=== PATIENT | female | born 1965 | race Caucasian/White ===

== ENCOUNTER 2018-09-23 10:06 | Outpatient (CLI) | payer OTHER ==
--- NOTE | 2018-09-23 13:43 | MRI ---
MRI CERVICAL SPINE WITHOUT CONTRAST: HISTORY: Neck pain. Headache. COMPARISON: None. FINDINGS: Appropriate T1 marrow signal intensity of the cervical vertebrae. Cervical spine vertebral body heig ht is maintained. There is no fracture. There is straightening of the normal cervical lordosis, whi ch may be due to patient position or muscle spasm. No significant STIR hyperintensity to suggest laura tebral body edema or ligamentous injury. The visualized brain parenchyma, cervicomedullary junction, cervical cord, and upper thoracic cord burroughs ve normal size and signal intensity. There is 2 mm of anterolisthesis of C3 upon C4. C2-C3: Central disk protrusion. No significant central canal stenosis. The neural foramina are pat ent. C3-C4: Central disk protrusion abuts the thecal sac. The ventral subarachnoid space is still mainta ined. Minimal flattening of the cervical cord. Mild central canal stenosis. No cord signal abnorma lity. Mild to moderate right and left foraminal narrowing due to uncovertebral and, to a lesser exte nt, facet hypertrophy. C4-C5: Generalized disk bulge with a small central protrusion without significant central canal sten osis. The neural foramina are patent bilaterally. C5-C6: Broad-based disk osteophyte complex causes mass effect upon the thecal sac. There is deformi ty of the cervical cord. Moderate central canal stenosis. Moderate to severe bilateral neural chito inal narrowing. C6-C7: Broad-based disk osteophyte complex causes mass effect upon the midline of the thecal sac. M ild flattening of the central cord. Mild central canal stenosis. No cord hyperintensity. Mild righ t foraminal narrowing. The left neural foramina is patent. C7-T1: No significant central canal stenosis. The neural foramina are patent. There does appear to be 1.4 mm of anterolisthesis of C7 upon T1. IMPRESSION: Degenerative changes of the cervical spine, as above. POS: [facility]
== END 2018-09-23 10:07 | disposition home or self-care (01) ==
LOC: TBSIIMAG 10:06
PROVIDERS: ATTEND Family Medicine
DX: M47.22 Other spondylosis with radiculopathy, cervical region (principal)
CPT/HCPCS: 72141

== ENCOUNTER 2018-10-29 09:13 | Outpatient (CLI) | payer OTHER ==
--- NOTE | 2018-10-29 10:28 | RAD ---
3 views of the cervical spine: 10/29/2018 COMPARISON: 05/28/2018 HISTORY: Degenerative cervical spine stenosis FINDINGS: There is disc space narrowing with degenerative endplate change and anterior osteophyte for mation at multiple levels within the cervical spine, including the C3-4 through C6-7 levels, most prominent at C5-6 and C6-7. No prevertebral soft tissue swelling. The neutral lateral exam demonstrates no anterolisthesis or retrolisthesis. With flexion there is ant erolisthesis at C2-3 measuring 4 mm, C3-4 measuring 4 mm, and C4-5 measuring 4 mm. These areas of anterolisthesis are reduced on extension imaging. IMPRESSION: Multilevel cervical spine degenerative change as detailed above. Multilevel anterolisthes is noted on the flexion.
== END 2018-10-29 09:14 | disposition home or self-care (01) ==
LOC: RAD 09:13
PROVIDERS: ATTEND Nurse Practitioner Family
DX: M48.02 Spinal stenosis, cervical region (principal); M47.812 Spondylosis without myelopathy or radiculopathy, cervical region; M43.12 Spondylolisthesis, cervical region
CPT/HCPCS: 72050

== ENCOUNTER 2020-04-08 19:06 | Emergency (ER) | payer OTHER ==
[2020-04-08] MEDS ORDERED: methylPREDNISolone Sod Succ/PF 125 MG/2 ML VIAL ONE (19:30)
[2020-04-08 19:55] LABS: #Lymphocytes 1.1 thou/uL (1.20-3.40); #Monocytes 0.5 thou/uL (0.11-0.59); #Neutrophils 4.1 thou/uL (1.40-6.50); %Basophils 0.8 % (0.0-1.0); %Eosinophils 0.3 % (0.0-10.0); %Lymphocytes 19.2 % (21.0-51.0); %Monocytes 8.1 % (0.0-10.0); %Neutrophils 71.7 % (42.0-75.0); Hemoglobin 12.5 g/dL (12.0-16.0); Mean Corpuscular Hemoglobin 31.1 pg (27.0-31.0); Mean Corpuscular Volume 91.5 fL (78.0-98.0); Mean Platelet Volume 7.2 fL (7.4-10.4); Platelet Count 249 thou/uL (130-400); RBC Distribution Width 15.9 % (11.5-14.5); Red Blood Cell (RBC) Count 4.03 mill/uL (4.20-5.40); White Blood Cell (WBC) Count 5.7 thou/uL (4.8-10.8)
[2020-04-08] MEDS ORDERED: Ketorolac Tromethamine 30 MG/ML VIAL ONE (20:11)
[2020-04-08] MEDS ORDERED: Morphine 2 MG/ML VIAL ONE (20:11)
[2020-04-08 20:17] LABS: ALT (SGPT) 24 U/L (8-55); AST (SGOT) 35 U/L (5-34); Albumin 3.8 g/dL (3.5-5.0); Alkaline Phosphatase 61 U/L (40-110); Anion Gap 15 mmol/L (10-20); BUN (Urea Nitrogen) 14 mg/dL (9.8-20.1); Bilirubin, Total 0.7 mg/dL (0.2-1.2); Calc. Creatinine Clearance 0 mL/min (70-130); Calcium 8.6 mg/dL (7.8-10.44); Carbon Dioxide 31 mmol/L (22-29); Chloride 96 mmol/L (98-107); Globulin 3.6 g/dL (2.4-3.5); Glucose 97 mg/dL (70-105); Potassium 3.5 mmol/L (3.5-5.1); Protein, Total 7.4 g/dL (6.0-8.3); Sodium 138 mmol/L (136-145)
--- NOTE | 2020-04-08 20:20 | RAD ---
Chest one view HISTORY: Dyspnea. COMPARISON: 02/09/2015. FINDINGS: Cardiac silhouette is magnified by projection. Pulmonary vasculature is unremarkable. Mediastinum is midline. Ill-defined patchy areas of parenchymal opacity project over the periphery of each lung base and the right upper lobe. No evidence of pneumothorax. Postoperative changes right shoulder. IMPRESSION : Bilateral multifocal infiltrates. Correlate for COVID pneumonitis.
[2020-04-08] MEDS ORDERED: Albuterol 200 PUFF (6.7GM INHALER) ONE (20:24)
== END 2020-04-08 21:35 | disposition home or self-care (01) ==
LOC: ERS 19:06
DX: U07.1 COVID-19 (principal); J12.82 Pneumonia due to coronavirus disease 2019; Z87.891 Personal history of nicotine dependence
CPT/HCPCS: 36415; 71045; 80053; 83880; 84484; 85025; 87040; 87804; 93005; 96374; 96375; J1885; J2270; J2930

== ENCOUNTER 2021-11-28 16:52 | Inpatient (IN) | payer BC ==
[~2021-11-28 16:52] MED LIST: Iopamidol-370 76% 500 ML 1 ML ONE
[2021-11-28 17:24] LABS: #Eosinphils 0.1 thou/uL (0.0-0.7); #Lymphocytes 2.1 thou/uL (1.20-3.40); #Monocytes 0.7 thou/uL (0.11-0.59); #Neutrophils 6.5 thou/uL (1.40-6.50); %Basophils 0.4 % (0.0-1.0); %Eosinophils 1.2 % (0.0-10.0); %Lymphocytes 22.5 % (21.0-51.0); %Monocytes 6.9 % (0.0-10.0); %Neutrophils 69.1 % (42.0-75.0); Hemoglobin 11.7 g/dL (12.0-16.0); Mean Corpuscular HGB CONC 34.7 g/dL (32.0-36.0); Mean Corpuscular Hemoglobin 34.1 pg (27.0-31.0); Mean Corpuscular Volume 98.2 fL (78.0-98.0); Mean Platelet Volume 6.4 fL (7.4-10.4); Platelet Count 331 thou/uL (130-400); RBC Distribution Width 16.8 % (11.5-14.5); Red Blood Cell (RBC) Count 3.44 mill/uL (4.20-5.40); White Blood Cell (WBC) Count 9.5 thou/uL (4.8-10.8)
[2021-11-28 17:32] LABS: PTT 28.6 sec (22.9-36.1); Prothrombin Time 13.3 sec (12.0-14.7)
[2021-11-28 17:40] LABS: ALT (SGPT) 21 U/L (8-55); AST (SGOT) 18 U/L (5-34); Albumin 3.7 g/dL (3.5-5.0); Alkaline Phosphatase 65 U/L (40-110); Anion Gap 15 mmol/L (10-20); BUN (Urea Nitrogen) 13 mg/dL (9.8-20.1); Bilirubin, Total 0.6 mg/dL (0.2-1.2); CK (CPK) 74 U/L (29-168); Calc. Creatinine Clearance 0 mL/min (70-130); Calcium 8.5 mg/dL (7.8-10.44); Carbon Dioxide 31 mmol/L (22-29); Chloride 98 mmol/L (98-107); Estimated GFR 93; Globulin 2.6 g/dL (2.4-3.5); Glucose 97 mg/dL (70-105); Lipase 24 U/L (8-78); Protein, Total 6.3 g/dL (6.0-8.3); Sodium 141 mmol/L (136-145)
[2021-11-28 18:17] LABS: SARS-CoV-2 NAA Rapid Test Not Detected (NotDetected)
[2021-11-28] MEDS ORDERED: Guaifenesin DM 100-10/5 ML UDCUP PO PRN (18:29)
[2021-11-28] MEDS ORDERED: Cyclobenzaprine 10 MG TAB PO PRN (18:29)
[2021-11-28] MEDS ORDERED: hydrALAZINE 20 MG/ML VIAL SLOW IVP PRN (18:29)
[2021-11-28] MEDS ORDERED: Senokot S 8.6-50 MG TAB PO PRN (18:29)
[2021-11-28] MEDS ORDERED: Ondansetron PF 4 MG/2 ML Vial IVP PRN (18:29)
[2021-11-28] MEDS ORDERED: niCARdipine 25 MG in Sodium Chloride 0.9% 250 ML 250 ML IVPB PRN (18:29)
[2021-11-28] MEDS ORDERED: Labetalol HCl 100 MG/20 ML VIAL SLOW IVP PRN (18:29)
[2021-11-28] MEDS ORDERED: ALPRAZolam 0.5 MG TAB PO PRN (18:29)
[2021-11-28] MEDS ORDERED: Acetaminophen 325 MG TAB PO PRN (18:29)
[2021-11-28] MEDS ORDERED: Sodium Chloride 0.9% 1,000 ML IV SCH (18:30)
[2021-11-28] MEDS ORDERED: Acetaminophen 500 MG TAB ONE (18:55)
[2021-11-28 19:57] VITALS: BMI 49.6
[2021-11-28] MEDS: Atorvastatin Calcium 40 MG TAB PO SCH (20:25)
[2021-11-29] MEDS: HYDROcodone/Acetaminophen 5/325 mg Tablet PO PRN ×3 (00:12→21:29)
[2021-11-29] MEDS: Communication Order-Pharmacy FS SCH ×2 (05:57→19:32)
[2021-11-29] MEDS ORDERED: Electrolyte Replacement Protocol FS PRN (08:30)
[2021-11-29] MEDS ORDERED: Potassium Chloride 20 MEQ TAB PO SCH (08:45)
[2021-11-29 18:48] LABS: #Basophils 0.1 thou/uL (0.0-0.2); #Eosinphils 0.1 thou/uL (0.0-0.7); #Lymphocytes 2.1 thou/uL (1.20-3.40); #Monocytes 0.8 thou/uL (0.11-0.59); %Basophils 0.5 % (0.0-1.0); %Eosinophils 1.3 % (0.0-10.0); %Lymphocytes 23.6 % (21.0-51.0); %Monocytes 8.6 % (0.0-10.0); Hemoglobin 11.9 g/dL (12.0-16.0); Mean Corpuscular HGB CONC 34.5 g/dL (32.0-36.0); Mean Corpuscular Hemoglobin 34.3 pg (27.0-31.0); Mean Corpuscular Volume 99.2 fL (78.0-98.0); Mean Platelet Volume 6.3 fL (7.4-10.4); Platelet Count 307 thou/uL (130-400); Red Blood Cell (RBC) Count 3.48 mill/uL (4.20-5.40); White Blood Cell (WBC) Count 9.1 thou/uL (4.8-10.8)
[2021-11-29 19:08] LABS: ALT (SGPT) 23 U/L (8-55); AST (SGOT) 18 U/L (5-34); Albumin 3.7 g/dL (3.5-5.0); Alkaline Phosphatase 67 U/L (40-110); Anion Gap 13 mmol/L (10-20); BUN (Urea Nitrogen) 11 mg/dL (9.8-20.1); Bilirubin, Total 0.6 mg/dL (0.2-1.2); Calc. Creatinine Clearance 178 mL/min (70-130); Calcium 8.7 mg/dL (7.8-10.44); Carbon Dioxide 31 mmol/L (22-29); Chloride 101 mmol/L (98-107); Estimated GFR 81; Globulin 2.7 g/dL (2.4-3.5); Glucose 111 mg/dL (70-105); Magnesium 1.9 mg/dL (1.6-2.6); Phosphorus 2.6 mg/dL (2.3-4.7); Potassium 3.4 mmol/L (3.5-5.1); Protein, Total 6.4 g/dL (6.0-8.3); Sodium 142 mmol/L (136-145)
[2021-11-29] MEDS ORDERED: Aspirin 81 mg Enteric Coated Tablet PO SCH (21:00)
[2021-11-29] MEDS ORDERED: Enoxaparin Sodium 40 MG/0.4 ML SYRINGE SC SCH (21:00)
[2021-11-29] MEDS: Atorvastatin Calcium 40 MG TAB PO SCH (21:25)
[2021-11-30] MEDS ORDERED: Potassium Chloride 20 MEQ TAB PO SCH ×2 (08:00→20:00)
[2021-11-30] MEDS ORDERED: Magnesium 2 GM/50 ML(in water) 2 GM in Premix Bag 1 BAG IVPB SCH (08:00)
[2021-11-30 14:49] LABS: Potassium 3.4 mmol/L (3.5-5.1)
[2021-11-30] MEDS ORDERED: Clopidogrel Bisulfate 75 MG TAB PO SCH (17:00)
[2021-11-30] MEDS ORDERED: METHOTREXATE SODIUM SC SCH (17:15)
[2021-11-30] MEDS ORDERED: ALPRAZolam 0.5 MG TAB PO PRN (17:32)
[2021-11-30] MEDS ORDERED: Acetaminophen 325 MG TAB PO PRN (17:32)
[2021-11-30] MEDS ORDERED: Cyclobenzaprine 10 MG TAB PO PRN (17:35)
[2021-11-30] MEDS ORDERED: Electrolyte Replacement Protocol FS PRN (17:35)
[2021-11-30] MEDS ORDERED: hydrALAZINE 20 MG/ML VIAL SLOW IVP PRN (17:36)
[2021-11-30] MEDS ORDERED: Guaifenesin DM 100-10/5 ML UDCUP PO PRN (17:36)
[2021-11-30] MEDS ORDERED: Labetalol HCl 100 MG/20 ML VIAL SLOW IVP PRN (17:37)
[2021-11-30] MEDS ORDERED: HYDROcodone/Acetaminophen 5/325 mg Tablet PO PRN (17:37)
[2021-11-30] MEDS ORDERED: Ondansetron PF 4 MG/2 ML Vial IVP PRN (17:38)
[2021-11-30] MEDS ORDERED: niCARdipine 25 MG in Sodium Chloride 0.9% 250 ML 250 ML IVPB PRN (17:38)
[2021-11-30] MEDS ORDERED: Senokot S 8.6-50 MG TAB PO PRN (17:39)
[2021-11-30] MEDS ORDERED: Enoxaparin Sodium 40 MG/0.4 ML SYRINGE SC SCH (21:00)
[2021-11-30] MEDS ORDERED: Aspirin 81 mg Enteric Coated Tablet PO SCH (21:00)
[2021-11-30] MEDS ORDERED: Atorvastatin Calcium 40 MG TAB PO SCH (21:00)
[2021-12-01 07:36] LABS: #Eosinphils 0.2 thou/uL (0.0-0.7); #Lymphocytes 1.6 thou/uL (1.20-3.40); #Monocytes 0.6 thou/uL (0.11-0.59); #Neutrophils 6.5 thou/uL (1.40-6.50); %Basophils 0.4 % (0.0-1.0); %Eosinophils 1.7 % (0.0-10.0); %Monocytes 7.1 % (0.0-10.0); %Neutrophils 72.8 % (42.0-75.0); Mean Corpuscular HGB CONC 33.5 g/dL (32.0-36.0); Mean Corpuscular Hemoglobin 34.1 pg (27.0-31.0); Mean Platelet Volume 6.3 fL (7.4-10.4); Platelet Count 315 thou/uL (130-400); RBC Distribution Width 17.3 % (11.5-14.5); Red Blood Cell (RBC) Count 3.23 mill/uL (4.20-5.40); White Blood Cell (WBC) Count 8.9 thou/uL (4.8-10.8)
[2021-12-01 07:57] LABS: Anion Gap 14 mmol/L (10-20); BUN (Urea Nitrogen) 8 mg/dL (9.8-20.1); Calc. Creatinine Clearance 199 mL/min (70-130); Calcium 8.5 mg/dL (7.8-10.44); Carbon Dioxide 27 mmol/L (22-29); Chloride 105 mmol/L (98-107); Estimated GFR 93; Glucose 118 mg/dL (70-105); Magnesium 2.3 mg/dL (1.6-2.6); Potassium 4.1 mmol/L (3.5-5.1); Sodium 142 mmol/L (136-145)
[2021-12-01] MEDS ORDERED: Folic Acid 1 MG TAB PO SCH ×2 (09:00)
[2021-12-01] MEDS ORDERED: Escitalopram Oxalate 10 mg Tablet PO SCH ×2 (09:00)
[2021-12-01] MEDS ORDERED: Clopidogrel Bisulfate 75 MG TAB PO SCH (09:00)
[2021-12-01] MEDS ORDERED: Losartan 25 MG TAB PO SCH ×2 (09:00)
[2021-12-01 11:34] VITALS: BP 160/81; TEMP 98.8
[2021-12-07] MEDS ORDERED: METHOTREXATE SODIUM SC SCH (09:00)
[2021-12-07] MEDS ORDERED: [UNRECOGNIZED DRUG - OTHER] SC SCH (09:00)
[2021-12-07] MEDS ORDERED: METHOTREXATE SODIUM 25 MG/ML SC SCH (09:00)
== END 2021-12-01 16:15 | disposition home or self-care (01) | DRG 62 ==
LOC: ERS 16:52 → CCU 18:06 → NEURO 11-29 20:32 → UNDODISIN 11-29 21:04
PROVIDERS: ADMIT Student in an Organized Health Care Education/Training Program; ATTEND Student in an Organized Health Care Education/Training Program
DX: I63.59 Cerebral infarction due to unspecified occlusion or stenosis of other cerebral artery (principal); G81.91 Hemiplegia, unspecified affecting right dominant side; Z68.42 Body mass index [BMI] 45.0-49.9, adult; I42.9 Cardiomyopathy, unspecified; Z20.822 Contact with and (suspected) exposure to COVID-19; R47.01 Aphasia; R29.810 Facial weakness; R47.1 Dysarthria and anarthria; I73.9 Peripheral vascular disease, unspecified; E87.6 Hypokalemia; K21.9 Gastro-esophageal reflux disease without esophagitis; R29.704 NIHSS score 4; E66.01 Morbid (severe) obesity due to excess calories; E78.5 Hyperlipidemia, unspecified; I10 Essential (primary) hypertension; F41.9 Anxiety disorder, unspecified; G93.89 Other specified disorders of brain; Z28.311 Partially vaccinated for COVID-19; Z90.49 Acquired absence of other specified parts of digestive tract; Z90.710 Acquired absence of both cervix and uterus; Z87.891 Personal history of nicotine dependence; Z88.1 Allergy status to other antibiotic agents; Z91.048 Other nonmedicinal substance allergy status; Z79.899 Other long term (current) drug therapy; Z79.82 Long term (current) use of aspirin; Z86.16 Personal history of COVID-19
CPT/HCPCS: 36415; 70450; 70496; 70498; 70551; 71045; 80048; 80053; 82550; 83690; 83735; 83880; 84100; 84132; 84484; 85025; 85610; 85730; 93005; 93306; 94760; 95706; 95819; 95957; 96374; J1650; J3475; J7050; J9250; Q9967; U0002